=== PATIENT | male | born 1985 | race Caucasian/White ===

== ENCOUNTER 2023-04-10 13:50 | Emergency (ER) | payer BC, SELFPAY ==
--- NOTE | ~2023-04-10 | XR_ITS ---
XR toe 1st RT min 2V DATE: 04/10/2023 14:26 INDICATION: Stubbed right great toe on 04/08/2023 persistent pain TECHNIQUE: 3 views COMPARISON: None FINDINGS: There is a minimally displaced fracture of the tuft of the distal phalanx with 1 mm or less offset of the cortex dorsally. The toenail is elevated. No other fracture or dislocation. There is mild osteoarthritis at the first metatarsophalangeal joint. IMPRESSION: Minimally displaced tuft fracture distal phalanx Reviewed, dictated and finalized at location B.
--- NOTE | 2023-04-10 13:58 | ED.EXTPRO ---
HPI - Extremity Problem General Chief complaint: Extremity Injury, Lower Stated complaint: Toe Injury on Right Foot Time Seen by Provider: 04/10/23 14:02 Source: patient Mode of arrival: ambulatory Limitations: no limitations History of Present Illness HPI Narrative: Douglas is a 38-year-old male patient presenting to the clinic today with complaints of a right great toe injury. He reports he was out the garage on Monday and kicked something and stubbed his right great toe. Patient states that he has soak does toe and peroxide and been putting triple antibiotic ointment on it. Related Data Allergies Allergy/AdvReac Type Severity Reaction Status Date / Time No Known Allergies Allergy Verified 04/10/23 14:11 Review of Systems Review of Systems: Pertinent positives per HPI. Patient denies any fever, chills, rash, headache, visual changes, dizziness, cough, runny nose, sore throat, shortness of breath, chest pain, palpitations, nausea, vomiting, diarrhea, constipation, abdominal pain, or any urinary issues. PMFSH Comments At the time of my signature, I reviewed and agree with the nursing past medical, surgical, social, and family history. There is no relevant family history pertinent to the patient complaint. Exam Narrative: General: Well-developed, well nourished, in no apparent distress Head: Normocephalic, atraumatic. Cardio: Regular rate and rhythm, s1 and s2 normal, no murmur appreciated. Resp: Clear to auscultation bilaterally, no rhonchi, rales, wheezing or rubs. Musculoskeletal: No deformity, swelling noted to the distal right great toe, tender to palpation over the right great toe, partial toe nail avulsion, nail avulsion noted at the base of the right medial toe, toenail appears to be securely attached to the nail bed with palpation, grossly normal range of motion, muscle strength strong and equal, peripheral pulse strong, no cyanosis, normal gait and station Course Course Emergency Course: Portions of this record may have been created with voice recognition software. Level of Care: Express Care Visit Vital Signs Vital signs: Vital signs reviewed MDM - Extremity (Nontraumatic) MDM Narrative Medical decision making narrative: At the time of visit patient is resting comfortably on the exam table. X-ray of the right great toe was performed and shows a minimally displaced tuft fracture. I suspect patient has an open fracture due to a toenail avulsion. Contacted Dr. Cole-neon technician and discussed patient case to determine if toe nail should be removed. He recommends to leave toenail in place and this time and have him follow up. Tetanus shot is up-to-date per patient. Will place patient on Keflex and give him a postop shoe. Recommend follow-up with his PCP or neon technician in 1 week for close follow-up. Signs and symptoms of infection were discussed with the patient. Supportive measures were discussed with the patient he voiced understanding discharge instructions agrees to treatment plan. Differential Diagnosis Differential diagnosis: Likely cellulitis and other (Nail avulsion, distal tuft fracture of the right great toe) Discharge Plan Discharge Clinical Impression: Avulsion of nail Open fracture of toe of right foot Qualifiers: Encounter type: initial encounter Toe: great toe Phalanx: distal Fracture alignment: displaced Qualified Code(s): S92.421B - Displaced fracture of distal phalanx of right great toe, initial encounter for open fracture Patient Disposition: Home, Self-Care Condition: Stable Instructions: Antibiotic Form, Toe Fracture (ED), Nail Avulsion (ED) Additional Instructions: Patient reports tetanus shot is up-to-date. X-ray of the right great toe shows a minimally displaced tuft fracture of the right distal toe Take Keflex as prescribed Keep clean and dry Wear postop shoe for 4-6 weeks Watch for signs and symptoms of infection- redness, streaking, swelling, purul
[2023-04-10 14:00] VITALS: BP 139/70; PULSE 79; RESP 20; TEMP 36.9; O2SAT 99
== END 2023-04-10 15:10 | disposition home or self-care (01) ==
PROVIDERS: Emergency Provider Nurse Practitioner Family
DX: S92.421B Displaced fracture of distal phalanx of right great toe, initial encounter for open fracture (principal); W22.8XXA Striking against or struck by other objects, initial encounter
CPT/HCPCS: 73660; 99214; G0463